=== PATIENT | male | born 1965 | race Caucasian/White ===

== ENCOUNTER 2018-01-09 05:43 | Day surgery (SDC) | payer OTHER ==
[~2018-01-09] VITALS: Ht 165.1 cm; Wt 92.0 kg
[~2018-01-09 05:43] MED LIST: DILAUDID4 MG PO; HUMULIN 70100 UNIT/2 SC; LO-DOSE ASPIRIN81 M2 PO; LOPRESSOR50 MG PO; NABI650T PO; NITROLINGUAL S4.9 GM MM; NORVASC5 MG PO; PLAVIX75 MG PO; ROCALTROL0.5 MCG PO
[2018-01-09] MEDS ORDERED: ASPIRIN81 M2 PO (06:25)
[2018-01-09 06:29] VITALS: BP 113/64
[2018-01-09 11:55] VITALS: BP 142/72
[2018-01-09 12:50] VITALS: BP 170/70
== END 2018-01-09 13:06 | disposition home or self-care (01) ==
LOC: SDC 05:43
PROVIDERS: Ophthalmology
DX: E11.3533 Type 2 diabetes mellitus with proliferative diabetic retinopathy with traction retinal detachment not involving the macula, bilateral (principal); H43.11 Vitreous hemorrhage, right eye; H35.371 Puckering of macula, right eye; E11.22 Type 2 diabetes mellitus with diabetic chronic kidney disease; I12.9 Hypertensive chronic kidney disease with stage 1 through stage 4 chronic kidney disease, or unspecified chronic kidney disease; N18.4 Chronic kidney disease, stage 4 (severe); E11.42 Type 2 diabetes mellitus with diabetic polyneuropathy; Z79.4 Long term (current) use of insulin; I25.708 Atherosclerosis of coronary artery bypass graft(s), unspecified, with other forms of angina pectoris; Z95.1 Presence of aortocoronary bypass graft; E11.51 Type 2 diabetes mellitus with diabetic peripheral angiopathy without gangrene; E78.2 Mixed hyperlipidemia; Z85.048 Personal history of other malignant neoplasm of rectum, rectosigmoid junction, and anus; Z93.3 Colostomy status; Z87.891 Personal history of nicotine dependence; M10.9 Gout, unspecified; G89.29 Other chronic pain; M54.5 Low back pain
CPT/HCPCS: 82948; J0131; J0330; J0690; J0713; J1170; J2250; J2405; J2710; J3300; J7643